=== PATIENT | male | born 1950 | race Caucasian/White ===

== ENCOUNTER → 2021-05-18 | Outpatient (CLI) | payer MEDICARE, OTHER ==
--- NOTE | 2021-05-18 20:11 | Diagnostic Imaging Report ---
INDICATION: Left lower extremity pain and edema COMPARISON: None TECHNIQUE: Duplex, harris-scale and color-flow imaging of the left lower extremity venous system was performed. FINDINGS: The common femoral vein, superficial femoral vein, and profunda femoris veins are normal. These vessels show normal compressibility, color flow, and doppler augmentation. The deep calf veins, although not very well seen, demonstrate no distinct intraluminal thrombus. The popliteal vein could not be adequately visualized. Note is made of large partially thrombosed aneurysm involving the visualized portions of the left popliteal artery. It measures 5.1 x 12.3 cm. There is preservation of normal triphasic flow within the dorsalis pedis artery. IMPRESSION: 1. No evidence of DVT in the left lower extremity. 2. 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 Dictated by: Dictated on workstation # [id number]
== END ==
LOC: RAD 16:23
PROVIDERS: ATTEND Family Medicine
DX: I72.4 Aneurysm of artery of lower extremity (principal); M79.662 Pain in left lower leg; R60.0 Localized edema

== ENCOUNTER → 2021-05-19 | Outpatient (CLI) | payer MEDICARE, OTHER ==
--- NOTE | 2021-05-19 13:18 | Diagnostic Imaging Report ---
Indication: Popliteal aneurysm found during a recent venous study. Study is performed for further evaluation. Grayscale, color flow and duplex Doppler evaluation left lower extremity arterial system was performed. There is predominately triphasic and biphasic waveforms throughout the left lower extremity arterial system. Velocities are normal. No high-grade stenosis or occlusion is identified. There is a large popliteal artery aneurysm present measuring approximately 14 cm in length. Aneurysm dilatations approximately 5.3 cm. There is a large amount of thrombus within the aneurysm but there is a patent channel. There is flow at the ankle via the posterior tibial and dorsalis pedis arteries. 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 No high-grade stenosis or occlusion is detected. Dictated by: Dictated on workstation # [id number]
== END ==
LOC: RAD 11:57
PROVIDERS: ATTEND Family Medicine
DX: I72.4 Aneurysm of artery of lower extremity (principal)
CPT/HCPCS: 93926

== ENCOUNTER → 2021-07-21 | Outpatient (CLI) | payer MEDICARE, OTHER ==
--- NOTE | 2021-07-21 14:50 | Diagnostic Imaging Report ---
TECHNIQUE: Live grayscale and color Doppler ultrasound was performed of the left lower extremity arterial system. COMPARISON: 05/19/2021. REASON FOR THE EXAM: Followup popliteal artery aneurysm. Post surgical changes in the left calf. FINDINGS: Normal triphasic waveforms are visualized in the left common femoral, profunda femoris, and proximal superficial femoral artery. Biphasic waveforms are seen in the mid superficial femoral artery with monophasic waveforms noted in the distal left superficial femoral artery. There is occlusion of the stent within the popliteal artery with occlusion also present in the posterior tibial artery. A prominent echogenic collection is seen in the popliteal fossa measuring 11.1 x 4.3 cm, most consistent with a hematoma or complex Smith's cyst. The anterior tibial artery is patent with monophasic waveforms. Monophasic waveform is also seen in a patent left dorsalis pedis artery. IMPRESSION: 1. Occluded stent within the left popliteal artery. 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 2. Flow is seen within the dorsalis pedis artery which demonstrates monophasic waveforms. 3. Heterogeneous collection in the popliteal fossa which may represent a hematoma or complicated Smith's cyst. This may represent post treatment changes for the patient's popliteal aneurysm. No aneurysm is identified on this exam. If indicated, consider CTA of the left lower extremity to further evaluate. Dictated by: Dictated on workstation # [id number]
== END ==
LOC: RAD 12:00
PROVIDERS: ATTEND Nurse Practitioner
DX: T82.898A Other specified complication of vascular prosthetic devices, implants and grafts, initial encounter (principal); I77.89 Other specified disorders of arteries and arterioles
CPT/HCPCS: 93926